=== PATIENT | male | born 1990 | race Caucasian/White ===

== ENCOUNTER → 2020-08-29 06:53 | Outpatient (CLI) | payer SELFPAY, OTHER ==
--- NOTE | 2020-08-29 07:05 | CT_ITS ---
STUDY: CT ABDOMEN AND PELVIS WITH AND WITHOUT CONTRAST REASON FOR EXAM: Male, 30 years old. Abnormal urinary results. RADIATION DOSAGE (If Supplied By Facility): CTDIvol = ( 10.13 ) mGy, DLP = ( 1317.18 ) mGycm TECHNIQUE: Transaxial images were obtained from the dome of the diaphragm to the symphysis pubis without oral contrast. IV 100mL Isovue-300 was administered. Sagittal and coronal images were reconstructed. Individualized dose optimization techniques were used for this CT. COMPARISON: None. FINDINGS: The visualized lung bases are unremarkable. The visualized portions of the heart are within normal limits. Normal liver. Normal gallbladder and extrahepatic biliary system. Normal spleen. Normal pancreas. Normal bilateral adrenal glands. Normal right kidney. Normal left kidney. Normal visualized stomach. Normal small intestine. Normal colon. The appendix is visualized and appears normal. Normal abdominal aorta. Normal inferior vena cava. Normal retroperitoneum. Normal urinary bladder. There is a small umbilical hernia containing fat. Normal osseous structures. CT/CT Abd/Pelvis W/WO Contrast IMPRESSION: Normal unenhanced and enhanced CT of the abdomen and pelvis. Electronically Signed: Sidney Santos MD at 8:30 EDT , Service support ,
== END ==
PROVIDERS: PCP Family Medicine; Referring Provider Nurse Practitioner Adult Health; Visit Provider Nurse Practitioner Adult Health
DX: R82.89 Other abnormal findings on cytological and histological examination of urine (principal)
CPT/HCPCS: 74178; Q9967

== ENCOUNTER → 2020-09-04 15:43 | Outpatient (CLI) | payer OTHER, SELFPAY ==
--- NOTE | 2020-09-04 | CYSPIN_PTH ---
PATIENT: DOYLE PEARL LOC: [facility] U#:[id number] AGE/SX: 34/M ROOM: RE09/04/[address]: Dr. Suman Verma MD : 1990 BED: DIS: SPEC #: [id number] RECD: 09/04/20 14:25 STATUS: DILLAN REJosue #: [id number] DYLON: 09/04/20 00:[address]: Suman Verma DEPT: CYTOLOGY RECD BY: Yumi Mccartney ENTERED: 09/05/20 08:10 SP TYPE: CYSPIN FL OTHR DR: Dr. Ihsan Pittman MD Tissues: Urine Procedures: Pap Stain (control) Special Stain Group II Cytospin Fluid HEADER OPERATION: Not noted PRE-OP DIAGNOSIS: Abnormal finding in urine R82.90 TISSUE SUBMITTED: Urine for cytology DIAGNOSIS CYTOLOGY Urine for cytology (cytospin): Negative for malignant cells. AM:shala 09/05/2020 CYTOLOGY STUDY Slides are reviewed. CYTOLOGY GROSS Received is 70 ml of hazy yellow fluid labeled with the patient's name and and designated per the requisition as urine. Submitted for cytology preparation. / shala 09/04/20 TC:5 CPT: 84433
[2020-09-04 16:20] LABS: Cytology, Body Fluid / CSF SEE PATHOLOGY REPORT
== END ==
PROVIDERS: PCP Family Medicine; Visit Provider Urology
DX: R82.90 Unspecified abnormal findings in urine (principal)
CPT/HCPCS: 88108; 88313